=== PATIENT | male | born 1945 | race Asian ===

== ENCOUNTER 2023-03-28 07:26 | Day surgery (SDC) | payer OTHER ==
[~2023-03-28] VITALS: Ht 157.5 cm; Wt 63.1 kg
[~2023-03-28 07:26] MED LIST: SODIUM CHLORIDE 0.9% 1,000 ML IV ONE; SODIUM CHLORIDE 0.9% 1,000 ML ONE
[2023-03-28] MEDS ORDERED: AMLO5TAB66 PO (07:52)
[2023-03-28] MEDS ORDERED: MIDAZOLAM HCL 2 MG/2 ML VIAL ONE (07:52)
[2023-03-28] MEDS ORDERED: FentaNYL CITRATE PF 100 MCG/2 ML VIAL ONE (07:52)
[2023-03-28] MEDS ORDERED: IRBE150T51 PO (07:53)
[2023-03-28] MEDS ORDERED: DUTA0.5C38 PO (07:53)
[2023-03-28] MEDS ORDERED: TAMS-13 PO (07:54)
[2023-03-28] MEDS ORDERED: ATOR10TA69 PO (07:54)
[2023-03-28] MEDS ORDERED: ALLO-97 PO (07:55)
[2023-03-28 09:56] VITALS: PULSE 54; RESP 12; O2SAT 99
[2023-03-28] MEDS ORDERED: MethylPREDNISolone SOD SUCC 125 MG/2 ML VIAL IVP ONE (10:15)
[2023-03-28] MEDS ORDERED: MethylPREDNISolone SOD SUCC 125 MG/2 ML VIAL ONE (10:33)
== END 2023-03-28 12:30 | disposition home or self-care (01) ==
LOC: SURGERY 07:26
PROVIDERS: ATTEND Internal Medicine Critical Care Medicine
DX: J38.4 Edema of larynx (principal); B37.0 Candidal stomatitis; Z79.899 Other long term (current) drug therapy; Z98.890 Other specified postprocedural states
CPT/HCPCS: 31623; 88112; 87206; 87101; 87220; 87070; 88305; 31624; 71045; 87015; 99152; J3010; J2250; J2930; J7030